=== PATIENT | male | born 1980 | race Caucasian/White ===

== ENCOUNTER → 2016-12-16 | Outpatient (CLI) | payer OTHER | LOC: RAD 08:32 | DX: M25.511 Pain in right shoulder (principal) ==

== ENCOUNTER 2018-07-13 05:37 | Outpatient (CLI) | payer BC ==
[~2018-07-13] VITALS: Ht 180.3 cm; Wt 88.9 kg
== END 2018-07-13 15:07 | disposition home or self-care (01) ==
LOC: PREOP 05:37
PROVIDERS: ATTEND Surgery
DX: Z01.818 Encounter for other preprocedural examination (principal)

== ENCOUNTER 2018-07-19 08:48 | Day surgery (SDC) | payer BC, OTHER ==
[~2018-07-19] VITALS: Ht 180.3 cm; Wt 88.9 kg
[2018-07-19 08:50] VITALS: BP 130/96
--- OUTSIDE RECORDS SUMMARY | 2018-07-19 08:53 | XMS REPORT | Continuity of Care Document ---
Author Author [facility] Organization [facility] Address Unknown Phone Unavailable Allergies Active Description Code Type Severity Reaction Onset Reported/Identified Relationship to Patient Clinical Status Yes No Known Drug Allergies [id number] Drug Allergy Unknown N/A 07/13/2018 Medications There is no data. Problems Date Dx Coded Attending Type Code Diagnosis Diagnosed By 11/29/2016 JEFF SOLITARIO, FABIAN Natarajan Ot 789.00 ABDOMINAL PAIN, UNSPECIFIED SITE 11/29/2016 JEFF SOLITARIO, FABIAN Natarajan Ot 789.00 ABDOMINAL PAIN, UNSPECIFIED SITE 12/13/2016 FABIAN AGUILAR MD Ot 789.00 ABDOMINAL PAIN, UNSPECIFIED SITE 12/16/2016 JEFF SOLITARIO, FABIAN Natarajan Ot 789.00 ABDOMINAL PAIN, UNSPECIFIED SITE 07/13/2018 VIKY CHOE MD Ot Z01.818 ENCOUNTER FOR OTHER PREPROCEDURAL EXAMIN Procedures There is no data. Results There is no data. Encounters ACCT No. Visit Date/Time Discharge Status Pt. Type Provider Facility Loc./Unit Complaint [id number] 07/13/2018 05:37:00 07/13/2018 15:07:00 DIS Outpatient VIKY CHOE MD [facility] PREOP EGD [id number] 12/16/2016 08:32:00 12/16/2016 23:59:59 CLS Outpatient TAINA TERAN MAINTENANCE CHIEF [facility] RAD RIGHT SHOULDER PAIN [id number] 10/16/2013 08:49:00 10/16/2013 23:59:59 CLS Outpatient FABIAN AGUILAR MD [facility] RAD ABD PAIN [id number] 07/19/2018 10:15:00 PEN Preadmit VIKY CHOE MD [facility] ENDO DYSPHAGIA
[2018-07-19] MEDS ORDERED: NS IV 500 ML 500 ML ONE (09:02)
[2018-07-19] MEDS ORDERED: fentaNYL INJECTION 100 MCG/2 ML AMP IVP ONE (09:15)
[2018-07-19] MEDS ORDERED: LIDOCAINE JELLY 2% 6 ML SYRINGE MM PRN (09:15)
[2018-07-19] MEDS ORDERED: HURRICAINE EXT TUBE (BENZOCAINE) XX PRN (09:15)
[2018-07-19] MEDS ORDERED: NS IV 500 ML 500 ML IV PRN (09:15)
[2018-07-19] MEDS ORDERED: MIDAZOLAM 2 MG/2 ML (VERSED) VIAL IVP ONE (09:15)
[2018-07-19] MEDS ORDERED: fentaNYL INJECTION 100 MCG/2 ML AMP ONE ×2 (09:54→10:55)
[2018-07-19] MEDS ORDERED: MIDAZOLAM 2 MG/2 ML (VERSED) VIAL ONE ×5 (09:54→10:48)
[2018-07-19] MEDS ORDERED: HURRICAINE EXT TUBE (BENZOCAINE) ONE (09:54)
[2018-07-19] MEDS ORDERED: LIDOCAINE JELLY 2% 6 ML SYRINGE ONE (09:54)
--- NOTE | 2018-07-19 10:28 | Conscious Sedation/ASA ---
Conscious Sedation Pre-Proced Time 10:20 ASA Score 2 For ASA 3 and 4: Consider anesthesia and medical clearance. Also, for patients with a history of failed moderate sedation consider anesthesia. Airway Lungs Heart ASA score ASA 1: a normal healthy patient ASA 2: a patient with a mild systemic disease (mid diabetes, controlled hypertension, obesity ASA 3: a patient with a severe systemic disease that limits activity (angina , COPD, prior Myocardial infarction) ASA 4: a patient with an incapacitating disease that is a constant threat to life (CHF, renal failure) ASA 5: a moribund patient not expected to survive 24 hrs. (ruptured aneurysm) ASA 6: a declared brain- patient whose organs are being harvested. For emergent operations, add the letter E after the classification Mallampati Classification Grade 2 Sedation Plan Analgesia, Amnesia, Plan communicated to team members, Discussed options with patient/fam, Discussed risks with patient/fam The patient is an appropriate candidate to undergo the planned procedure, sedation, and anesthesia. The patient immediately re-assessed prior to indication. VIKY CHOE MD Jul 19, 2018 10:28
--- NOTE | 2018-07-19 10:29 | Progress Note-Pre Operative ---
Pre-Operative Progress Note H&P Reviewed The H&P was reviewed, patient examined and no changes noted. Date Seen by Provider: Jul 19, 2018 Time Seen by Provider: 10:20 Date H&P Reviewed: Jul 19, 2018 Time H&P Reviewed: 10:20 Pre-Operative Diagnosis: dysphagia VIKY CHOE MD Jul 19, 2018 10:29
[2018-07-19] MEDS ORDERED: ONDANSETRON 4 MG/2 ML (SDV) Z0FRAN IV PRN (10:30)
[2018-07-19] MEDS ORDERED: ACETAMINOPHEN 325 MG TABLET PO PRN (10:30)
[2018-07-19] MEDS ORDERED: morphine INJ 10 MG/ML 1ML (SYR OR VIAL) IV PRN (10:30)
[2018-07-19] MEDS ORDERED: PANT40TA2 PO (10:30)
[2018-07-19] MEDS ORDERED: HYDROcodone/APAP 5 MG/325 MG (LORTAB) TAB PO PRN (10:30)
--- NOTE | 2018-07-19 10:31 | Discharge Inst-Surgical ---
D/C Lap Instructions-KIDO New, Converted, or Re-Newed RX: RX on Chart Follow Up Activity as tolerated High Fiber Diet 25g or more per day Avoid Alcohol, Caffeine, Spicy [place] and Acid foods. Drink 64 fluid oz or more of fluids per day. Symptoms to Report: Fever over 101 degree F, Nausea/Vomiting If any problems/questions: Contact your physician or go to Emergency Room VIKY CHOE MD Jul 19, 2018 10:31
--- NOTE | 2018-07-19 11:09 | Progress Note-Post Operative ---
Post-Operative Progess Note Surgeon (s)/Credit Advisor (s) Surgeon VIKY CHOE MD Credit Advisor: none Pre-Operative Diagnosis dysphagia Post-Operative Diagnosis reflux esophagitis(stage 2-3), distal esophageal stricture and schatzki ring, small HH(1.5cm), mild gastritis. Procedure & Operative Findings Date of Procedure 07/19/18 Procedure Performed/Findings EGD with bx and balloon dilatation. Anesthesia Type cs Estimated Blood Loss Estimated blood loss (mL): minimal Specimens/Packing Specimens Removed ge jxn, antrum VIKY CHOE MD Jul 19, 2018 11:09
[2018-07-19 11:45] VITALS: BP 124/85
[2018-07-19 12:10] VITALS: BP 132/95
== END 2018-07-19 12:15 | disposition home or self-care (01) ==
LOC: ENDO 08:48
PROVIDERS: ATTEND Surgery
DX: K21.0 Gastro-esophageal reflux disease with esophagitis (principal); K22.2 Esophageal obstruction; K44.9 Diaphragmatic hernia without obstruction or gangrene; K29.70 Gastritis, unspecified, without bleeding; Z87.891 Personal history of nicotine dependence

== ENCOUNTER → 2021-12-31 | Outpatient (CLI) | payer BC ==
[~2021-12-31] VITALS: Ht 180.3 cm; Wt 89.4 kg
[~2021-12-31] MED LIST: HYDR25TA4 PO; PANT40TA2 PO
== END | disposition home or self-care (01) ==
LOC: PREOP 05:34
PROVIDERS: ATTEND Surgery
DX: Z01.818 Encounter for other preprocedural examination (principal)

== ENCOUNTER 2022-01-06 12:22 | Day surgery (SDC) | payer BC ==
[~2022-01-06] VITALS: Ht 180 cm; Wt 89.4 kg
[2022-01-06] MEDS ORDERED: LACTATED RINGERS 1,000 ML IV STA (12:24)
[2022-01-06] MEDS ORDERED: LIDOCAINE JELLY 2% 6 ML SYRINGE MM PRN (12:30)
[2022-01-06] MEDS ORDERED: HURRICAINE EXT TUBE (BENZOCAINE) XX PRN (12:30)
[2022-01-06 12:40] VITALS: BP 144/94
[2022-01-06] MEDS ORDERED: PROPOFOL INJECTION 50 ML IV ONE (12:55)
--- NOTE | 2022-01-06 13:08 | Progress Note-Pre Operative ---
Pre-Operative Progress Note Date of Available H&P: Jan 06, 2022 Date H&P Reviewed: Jan 06, 2022 Time H&P Reviewed: 13:00 History & Physical: No changes noted Pre-Operative Diagnosis: GERD,dysphagia VIKY CHOE MD Jan 06, 2022 13:08
--- NOTE | 2022-01-06 13:09 | Discharge Inst-Surgical ---
D/C Lap Instructions-ДМИТРИЙ Follow Up Activity as tolerated High Fiber Diet 25g or more per day Avoid Alcohol, Caffeine, Spicy [place] and Acid foods. Drink 64 fluid oz or more of fluids per day. Symptoms to Report: Fever over 101 degree F, Nausea/Vomiting If any problems/questions: Contact your physician or go to Emergency Room VIKY CHOE MD Jan 06, 2022 13:09
[2022-01-06] MEDS ORDERED: ONDANSETRON 4 MG (ZOFRAN) ORAL DISSOLVE TAB PO PRN (13:15)
[2022-01-06] MEDS ORDERED: ONDANSETRON 4 MG/2 ML (SDV) Z0FRAN IVP PRN (13:15)
--- NOTE | 2022-01-06 13:47 | Anesthesia-General Post-Op ---
MAC Patient Condition Mental Status/LOC: Same as Preop Cardiovascular: Satisfactory Nausea/Vomiting: Absent Respiratory: Satisfactory Pain: Controlled Complications: Absent Post Op Complications Complications None Follow Up Care/Instructions Patient Instructions None needed. Anesthesiology Discharge Order Discharge Order Patient is doing well, no complaints, stable vital signs, no apparent adverse anesthesia problems. No complications reported per nursing. CARLEE VALLE CRNA Jan 06, 2022 13:47
[2022-01-06 13:50] VITALS: BP 139/80
[2022-01-06 13:55] VITALS: BP 137/76
[2022-01-06 14:15] VITALS: BP 135/89
--- NOTE | 2022-01-06 14:51 | Progress Note-Post Operative ---
Post-Operative Progess Note Surgeon (s)/Senior Network Systems Engineer (s) Surgeon VIKY CHOE MD Senior Network Systems Engineer: none Pre-Operative Diagnosis GERD,dysphagia Post-Operative Diagnosis reflux esophagitis(grade B-C), small HH(2cm), moderate gastritis, distal esoph stricture. Procedure & Operative Findings Date of Procedure 01/06/22 Procedure Performed/Findings EGD with bx and balloon dilatation. Anesthesia Type mac Estimated Blood Loss Estimated blood loss (mL): minimal Specimens/Packing Specimens Removed ge jxn, antrum VIKY CHOE MD Jan 06, 2022 14:51
--- NOTE | 2022-01-06 22:22 | OPERATIVE REPORT ---
DATE OF SERVICE: 01/06/2022 ATTENDING PRIMARY CARE PHYSICIAN: Dr. Pina. PREOPERATIVE DIAGNOSES: Gastroesophageal reflux disease and dysphagia. POSTOPERATIVE DIAGNOSES: Reflux esophagitis between [place] grade B and C with distal esophageal stricture, small hiatal hernia approximately 2 cm in size, moderate gastritis. No distal obstructions. PROCEDURE: EGD with biopsy and balloon dilatation. SURGEON: Viky Choe MD. ANESTHESIA: Monitored anesthesia care. ESTIMATED BLOOD LOSS: Minimal. FINDINGS: Reflux esophagitis between [place] grade B and C with distal esophageal stricture, small hiatal hernia approximately 2 cm in size, moderate gastritis. No distal obstructions. DISPOSITION: The patient tolerated the procedure well. INDICATIONS: The patient is a 41-year-old male who has had a history of epigastric burning sensation as well as crampy pain for some amount of time. He is a previous smoker; however, quit in 2011. He does drink alcohol daily. He did undergo an EGD in 2019 and was found to have a stricture and underwent a balloon dilatation. He reports recurrent episodes of dysphagia with difficulty swallowing after specific types of foods and substernal pressure sensation. He does not report any hematemesis, no coffee ground emesis. DESCRIPTION OF PROCEDURE: The patient was brought to the endoscopy suite, laid in the left lateral decubitus position. After adequate IV pain and sedative medications and conscious sedation anesthesia, monitored anesthesia care, mouthpiece was applied. The endoscope was placed in the mouth, visualized the pharynx and hypopharyngeal region. Vocal cords, epiglottis and vallecula identified and appeared to be normal. The endoscope was then gently intubated at the esophageal opening and esophagus insufflated. The endoscope was then advanced to the first, second and third portion of esophagus at the level of the GE junction, a reflux esophagitis, [place] between grade B and C identified. There was a mild to moderate distal esophageal stricture also identified. A biopsy was taken of the GE junction with forceps with visualization of good hemostasis. The endoscope was advanced into the stomach, endoscope retroflexed, visualizing a small hiatal hernia approximately 1.5 to 2 cm in size. There was a moderate severity gastritis more towards the stomach antrum. No formal ulcerations, polyps, or any neoplasms. A biopsy was taken of the antrum to rule out H. pylori with visualization of good hemostasis. The endoscope was then advanced through the pylorus into the first and second portion of the duodenum, which appeared normal with no distal obstructions. The balloon was then placed in the stomach and pulled back to the area of the stricture. We then proceeded in a graded stepwise fashion from 2, 4, then eventually 5.5 atmospheres of pressure or approximately 19.5 in luminal diameter and moderate resistance and left this in place for approximately 60 seconds. The balloon was then desufflated and removed with visualization of good hemostasis as well as no mucosal tears. The endoscope was then slowly withdrawn while taking a second look and suctioning of residual air with no additional findings. The patient tolerated the procedure well. We will recommend the necessary lifestyle and dietary accommodation including small and more frequent meals, avoidance of eating at night as well as head elevation while lying supine. He also needs to moderate alcohol consumption. We will also restart him on a PPI acid tombstone carver to be taken on a b.i.d. basis due to his chronic history. We did meet resistance at 19.5 mm in luminal diameter and we will recommend a followup EGD and balloon dilatation approximately six weeks for the goal dilatation of 20 mm in luminal diameter. Job ID: [id number] DocumentID: [id number] Dictated Date: 01/06/2022 13:50:19 Mannequin Sander And Finisher Date: 01/06/2022 22:20:56 Dictated By: VIKY CHOE MD
== END 2022-01-06 14:25 | disposition home or self-care (01) ==
LOC: ENDO 12:22
PROVIDERS: ATTEND Surgery
DX: K21.00 Gastro-esophageal reflux disease with esophagitis, without bleeding (principal); K22.2 Esophageal obstruction; K29.50 Unspecified chronic gastritis without bleeding; K44.9 Diaphragmatic hernia without obstruction or gangrene; Z87.891 Personal history of nicotine dependence; Z79.899 Other long term (current) drug therapy